=== PATIENT | male | born 1980 | race Caucasian/White ===

== ENCOUNTER 2018-02-01 08:15 | Emergency (ER) | payer OTHER ==
--- NOTE | 2018-02-01 08:47 | ER ---
Nurse's Notes [facility] Name: Palmer Xavier Age: 37 yrs Sex: Male : 1980 Arrival Date: 02/01/2018 Time: 08:17 Bed 5 Private MD: Diagnosis: Strain of other muscle(s) and tendon(s) at lower leg level, right leg Presentation: 02/01 08:40 Presenting complaint: Patient states: I was walking to the bus on Friday and my right jl7 butt cheek started hurting, feels tight and pulls. Transition of care: patient was not received from another setting of care. Onset of symptoms was January 30, 2018. Risk Assessment: Do you want to hurt yourself or someone else? Patient reports no desire to harm self or others. Initial Sepsis Screen: Does the patient meet any 2 criteria? No. Patient's initial sepsis screen is negative. Does the patient have a suspected source of infection? No. Patient's initial sepsis screen is negative. Care prior to arrival: None. 08:40 Method Of Arrival: Ambulatory [facility] 08:40 Acuity: MELANIE 4 jl7 Triage Assessment: 08:42 General: Appears in no apparent distress. uncomfortable, Behavior is calm, cooperative, jl7 appropriate for age. Pain: Complains of pain in right gluteus dangelo Pain does not radiate. Pain currently is 3 out of 10 on a pain scale. Quality of pain is described as "tight and pulling." Pain began 2-3 days ago. Is continuous. EENT: No signs and/or symptoms were reported regarding the EENT system. Neuro: Level of Consciousness is awake, alert, obeys commands, Oriented to person, place, time, situation. Cardiovascular: Patient's skin is warm and dry. Respiratory: Airway is patent Respiratory effort is even, unlabored, Respiratory pattern is regular, symmetrical. GI: No signs and/or symptoms were reported involving the gastrointestinal system. : No signs and/or symptoms were reported regarding the genitourinary system. Derm: Skin is pink, warm \\T\\ dry. Musculoskeletal: Reports pain in right gluteus dangelo since Friday. Pain is 3 out of 10 on a pain scale. Historical: - Allergies: 08:42 No Known Allergies; jl7 - Home Meds: 08:42 None [Active]; jl7 - PMHx: 08:42 None; jl7 - PSHx: 08:42 None; jl7 - Immunization history:: Adult Immunizations up to date. - Social history:: Smoking status: Patient uses tobacco products, 2-3 smokes per day, Patient uses alcohol, on a daily basis. admits to "couple of beers" a day. - Ebola Screening: : No symptoms or risks identified at this time. Screenin:53 Abuse screen: Denies threats or abuse. Denies injuries from another. Nutritional jl7 screening: No deficits noted. Tuberculosis screening: No symptoms or risk factors identified. Fall Risk Gait- Impaired (20 pts.). Total Mcmillan Fall Scale indicates No Risk (0-24 pts). Assessment: 08:48 General: See triage assessment. jl7 Vital Signs: 08:42 BP 171 / 98; Pulse 72; Resp 16; Pulse Ox 96% ; Weight 74.84 kg; Height 5 ft. 7 in. jl7 (170.18 cm); Pain 3/10; 09:07 BP 165 / 92; Pulse 70; Resp 16; Pulse Ox 97% ; jl7 08:42 Body Mass Index 25.84 (74.84 kg, 170.18 cm) jl7 ED Course: 08:17 Patient arrived in ED. rg4 08:27 Bernard Perez, MALA is Primary Nurse. jl7 08:28 Fortino Walls NP is PHCP. pm1 08:28 Steve Kimball MD is Attending Physician. pm1 08:41 Triage completed. jl7 08:42 Arm band placed on right wrist. jl7 08:53 Patient has correct armband on for positive identification. Placed in gown. Bed in low jl7 position. Call light in reach. Side rails up X 1. Pulse ox on. NIBP on. 08:53 No provider procedures requiring assistance completed. Patient did not have IV access jl7 during this emergency room visit. Administered Medications: 08:53 Drug: TORadol 60 mg Route: IM; Site: left gluteus; jl7 09:07 Follow up: Response: No adverse reaction jl7 Outcome: 08:46 Discharge ordered by . pm1 09:06 Discharged to home ambulatory. jl7 09:06 Condition: stable 09:06 Discharge instructions given to patient, Instructed on discharge instructions, follow up and referral plans. medication usage, Demonstrated understanding of instructions, follow-up care, medications, Prescriptions given X 3. 09:07 Patient left the ED. jl7 Signatures: Fortino Walls NP GUEST EXPERIENCE REPRESENTATIVE pm1 Isatu Lozano rg4 Bernard Perez RN RN jl7
--- NOTE | 2018-02-01 08:47 | EDPHYS ---
Physician Documentation [facility] Name: Palmer Xavier Age: 37 yrs Sex: Male : 1980 Arrival Date: 02/01/2018 Time: 08:17 Bed 5 Private MD: ED Physician Steve Kimball HPI: 02/01 08:44 This 37 yrs old Male presents to ER via Ambulatory with complaints of Right pm1 Leg Pain. 08:44 The patient presents with pain, that is acute. The complaints affect the lateral aspect pm1 of right thigh. Context: The problem was sustained at work, resulted from a repetitive motion, working and lifting, the patient can fully bear weight, the patient is able to ambulate, Problem is a result from a previous injury: No. Onset: The symptoms/episode began/occurred 2 day(s) ago. Modifying factors: The symptoms are alleviated by Rest, topical bengay ointment and icy hot, advil. Associated signs and symptoms: Pertinent negatives calf tenderness, fever, numbness, tingling, chest pain or shortness of breath. Treatment prior to arrival includes: over the counter medications. Severity of symptoms: in the emergency department the symptoms have improved. The patient has not experienced similar symptoms in the past. Injury occurred during work. [place] a light strain to right right lateral thigh area at work earlier in the day from lifting. As he was walking to the bus at the end of the day he felt a sharp strain to his right lateral thigh. Pain has improved with OTC medications and rest . Historical: - Allergies: 08:42 No Known Allergies; jl7 - Home Meds: 08:42 None [Active]; jl7 - PMHx: 08:42 None; jl7 - PSHx: 08:42 None; jl7 - Immunization history:: Adult Immunizations up to date. - Social history:: Smoking status: Patient uses tobacco products, 2-3 smokes per day, Patient uses alcohol, on a daily basis. admits to "couple of beers" a day. - Ebola Screening: : No symptoms or risks identified at this time. ROS: 08:44 Constitutional: Negative for fever, chills, and weight loss, Eyes: Negative for injury, pm1 pain, redness, and discharge, ENT: Negative for injury, pain, and discharge, Neck: Negative for injury, pain, and swelling, Cardiovascular: Negative for chest pain, palpitations, and edema, Respiratory: Negative for shortness of breath, cough, wheezing, and pleuritic chest pain, Abdomen/GI: Negative for abdominal pain, nausea, vomiting, diarrhea, and constipation, Back: Negative for injury and pain. 08:44 Skin: Negative for injury, rash, and discoloration, Neuro: Negative for headache, weakness, numbness, tingling, and seizure. 08:44 MS/extremity: Positive for pain, of the lateral aspect of right thigh, Negative for decreased range of motion, deformity. Exam: 08:44 Constitutional: This is a well developed, well nourished patient who is awake, alert, pm1 and in no acute distress. Head/Face: Normocephalic, atraumatic. Chest/axilla: Normal chest wall appearance and motion. Nontender with no deformity. No lesions are appreciated. Cardiovascular: Regular rate and rhythm with a normal S1 and S2. No gallops, murmurs, or rubs. Normal PMI, no JVD. No pulse deficits. Respiratory: Lungs have equal breath sounds bilaterally, clear to auscultation and percussion. No rales, rhonchi or wheezes noted. No increased work of breathing, no retractions or nasal flaring. Abdomen/GI: Soft, non-tender, with normal bowel sounds. No distension or tympany. No guarding or rebound. No evidence of tenderness throughout. Back: No spinal tenderness. No costovertebral tenderness. Full range of motion. Skin: Warm, dry with normal turgor. Normal color with no rashes, no lesions, and no evidence of cellulitis. 08:44 Musculoskeletal/extremity: Extremities: grossly normal except: noted in the lateral aspect of right thigh: Muscle spasm, ROM: intact in all extremities, full active range of motion, in the right leg, full passive range of motion, in the right leg, Circulation is intact in all extremities. Pulses: noted to be 2+ in the right posterior tibial artery and right dorsalis pedis artery, Calf tenderness, is absent, the right leg Sensation intact. DVT Exam: No signs of deep vein thrombosis. no swelling, negative Homans' sign noted on exam, no appreciated bluish discoloration, no erythema, no increased warmth. 08:44 Neuro: Orientation: is normal, Motor: is normal, moves all fours, strength is 5/5 in all extremities. Vital Signs: 08:42 BP 171 / 98; Pulse 72; Resp 16; Pulse Ox 96% ; Weight 74.84 kg; Height 5 ft. 7 in. [facility] (170.18 cm); Pain 3/10; 09:07 BP 165 / 92; Pulse 70; Resp 16; Pulse Ox 97% ; jl7 08:42 Body Mass Index 25.84 (74.84 kg, 170.18 cm) [facility] MDM: 08:32 Patient medically screened. [facility] 08:44 Data reviewed: vital signs. Data interpreted: Pulse oximetry: on room air is 96 %. pm1 Interpretation: normal. Counseling: I had a detailed discussion with the patient and/or guardian regarding: the historical points, exam findings, and any diagnostic results supporting the discharge/admit diagnosis, the need for outpatient follow up, to return to the emergency department if symptoms worsen or persist or if there are any questions or concerns that arise at home. Administered Medications: 08:53 Drug: TORadol 60 mg Route: IM; Site: left gluteus; [facility] 09:07 Follow up: Response: No adverse reaction [facility] Disposition: 02/02 09:01 Co-signature as Attending Physician, Steve Kimball MD I agree with the assessment and [facility] plan of care. Disposition: 02/01/18 08:46 Discharged to Home. Impression: Strain of other muscle(s) and tendon(s) at lower leg level, right leg. - Condition is Stable. - Discharge Instructions: Muscle Strain. - Prescriptions for Naprosyn 500 mg Oral Tablet - take 1 tablet by ORAL route 2 times per day take with food; 30 tablet. Tylenol- Codeine #3 300-30 mg Oral Tablet - take 1 tablet by ORAL route every 6 hours As needed; 15 tablet. Cyclobenzaprine 10 mg Oral Tablet - take 1 tablet by ORAL route every 8 hours As needed; 30 tablet. - Work release form, Medication Reconciliation Form, Thank You Letter, Prescription Opioid Use form. - Follow up: Emergency Department; When: As needed; Reason: Worsening of condition. Follow up: Private Physician; When: 2 - 3 days; Reason: Recheck today's complaints, Continuance of care, Re-evaluation by your physician. - Problem is new. - Symptoms have improved. Signatures: Steve Kimball MD MD cha Marinas, Patrick, [place] [employer] [place] [employer] pm1 Bernard Perez, RN RN jl7 Corrections: (The following items were deleted from the chart) 02/01 09:07 08:46 02/01/2018 08:46 Discharged to Home. Impression: Strain of other muscle(s) and jl7 tendon(s) at lower leg level, right leg. Condition is Stable. Forms are Medication Reconciliation Form, Thank You Letter, Antibiotic Education, Prescription Opioid Use. Follow up: Emergency Department; When: As needed; Reason: Worsening of condition. Follow up: Private Physician; When: 2 - 3 days; Reason: Recheck today's complaints, Continuance of care, Re-evaluation by your physician. Problem is new. Symptoms have improved. pm1
[2018-02-01] MEDS ORDERED: KETOROLAC 30 MG/ML INJ ONE (08:51)
== END 2018-02-01 09:07 | disposition home or self-care (01) ==
LOC: ER 08:15
DX: S86.811A Strain of other muscle(s) and tendon(s) at lower leg level, right leg, initial encounter (principal); F17.210 Nicotine dependence, cigarettes, uncomplicated; X50.9XXA Other and unspecified overexertion or strenuous movements or postures, initial encounter; Y93.89 Activity, other specified; Y92.9 Unspecified place or not applicable; Y99.0 Civilian activity done for income or pay
CPT/HCPCS: 96372; 99283